=== PATIENT | male | born 1955 | race African-American/Black ===

== ENCOUNTER 2017-06-09 11:46 | Emergency (ER) | payer MEDICARE, MEDICAID ==
[2017-06-09 12:17] LABS: #Lymphocytes 1.7 thou/uL (1.20-3.40); #Monocytes 0.6 thou/uL (0.11-0.59); #Neutrophils 2.1 thou/uL (1.40-6.50); %Basophils 0.9 % (0.0-1.0); %Eosinophils 0.3 % (0.0-10.0); %Monocytes 12.8 % (0.0-10.0); Hematocrit 49.5 % (42.0-52.0); Mean Platelet Volume 7.9 fL (7.4-10.4); Red Blood Cell (RBC) Count 5.04 mill/uL (4.70-6.10); White Blood Cell (WBC) Count 4.4 thou/uL (4.8-10.8)
[2017-06-09 12:38] LABS: Bilirubin Moderate (Negative); Blood, Urine Negative (Negative); Glucose, Urine (Dipstick) Negative (Negative); Ketone, Urine Negative (Negative); Nitrite Negative (Negative); Protein, Urine (Dipstick) Negative (Neg-Trace)
[2017-06-09 12:40] LABS: ALT (SGPT) 175 U/L (8-55); AST (SGOT) 118 U/L (5-34); Alkaline Phosphatase 99 U/L (40-150); Anion Gap 19 mmol/L (10-20); BUN (Urea Nitrogen) 20 mg/dL (8.4-25.7); CK (CPK) 390 U/L (30-200); Calc. Creatinine Clearance 0 mL/min (70-130); Calcium 10.2 mg/dL (7.8-10.44); Carbon Dioxide 19 mmol/L (23-31); Chloride 106 mmol/L (98-107); Estimated GFR-MDRD 74; Protein, Total 8.2 g/dL (5.8-8.1)
[2017-06-09 12:43] LABS: Acetaminophen Less than 6.0 mcg/mL (10.0-30.0); Salicylate Less than 8.0 mg/dL (15.0-30.0)
[2017-06-09 12:48] LABS: Amphetamine Not Detected (NotDetected); Methadone Not Detected (NotDetected); Methamphetamine Not Detected (NotDetected)
[2017-06-09] MEDS ORDERED: hydrOXYzine 25 MG TAB ONE ×2 (16:28→16:29)
[2017-06-09] MEDS ORDERED: Acetaminophen 325 MG TAB ONE (18:31)
[2017-06-09] MEDS ORDERED: Ibuprofen 200 MG TAB ONE (19:45)
== END 2017-06-09 21:03 ==
LOC: ERS 11:46
DX: F23 Brief psychotic disorder (principal); I10 Essential (primary) hypertension; M19.90 Unspecified osteoarthritis, unspecified site; F41.9 Anxiety disorder, unspecified; F32.9 Major depressive disorder, single episode, unspecified; F17.210 Nicotine dependence, cigarettes, uncomplicated
CPT/HCPCS: 36415; 80053; 80306; 80307; 81003; 82550; 84443; 85025; 99285

== ENCOUNTER 2017-07-07 23:45 | Emergency (ER) | payer MEDICARE, MEDICAID ==
[2017-07-08 00:44] LABS: #Eosinphils 0.1 thou/uL (0.0-0.7); #Lymphocytes 1.8 thou/uL (1.20-3.40); #Monocytes 0.6 thou/uL (0.11-0.59); #Neutrophils 1.8 thou/uL (1.40-6.50); %Basophils 0.9 % (0.0-1.0); %Eosinophils 2.7 % (0.0-10.0); %Lymphocytes 40.8 % (21.0-51.0); %Monocytes 13.8 % (0.0-10.0); Mean Platelet Volume 7.7 fL (7.4-10.4); Red Blood Cell (RBC) Count 4.28 mill/uL (4.70-6.10); White Blood Cell (WBC) Count 4.4 thou/uL (4.8-10.8)
[2017-07-08 00:55] LABS: Bilirubin Negative (Negative); Blood, Urine Negative (Negative); Glucose, Urine (Dipstick) Negative (Negative); Ketone, Urine Negative (Negative); Nitrite Negative (Negative); Protein, Urine (Dipstick) Negative (Neg-Trace)
[2017-07-08 01:04] LABS: Acetaminophen Less than 6.0 mcg/mL (10.0-30.0); Salicylate Less than 8.0 mg/dL (15.0-30.0)
[2017-07-08 01:06] LABS: Amphetamine Not Detected (NotDetected); Methadone Not Detected (NotDetected); Methamphetamine Not Detected (NotDetected)
[2017-07-08 01:07] LABS: ALT (SGPT) 215 U/L (8-55); AST (SGOT) 233 U/L (5-34); Alkaline Phosphatase 127 U/L (40-150); Anion Gap 13 mmol/L (10-20); BUN (Urea Nitrogen) 11 mg/dL (8.4-25.7); Bilirubin, Total 0.4 mg/dL (0.2-1.2); CK (CPK) 165 U/L (30-200); Calc. Creatinine Clearance 0 mL/min (70-130); Calcium 9.2 mg/dL (7.8-10.44); Carbon Dioxide 23 mmol/L (23-31); Chloride 101 mmol/L (98-107); Estimated GFR-MDRD Greater than 90; Globulin 3.4 g/dL (2.4-3.5); Protein, Total 7.1 g/dL (5.8-8.1)
[2017-07-08 01:10] LABS: Troponin I Less than 0.010 ng/mL (< 0.028)
[2017-07-08 03:53] LABS: Troponin I 0.018 ng/mL (< 0.028)
[2017-07-08] MEDS ORDERED: Ibuprofen 200 MG TAB ONE (04:51)
--- NOTE | 2017-07-08 07:19 | RAD ---
CHEST 1 VIEW: Date: 07/07/17 HISTORY: Chest pain. COMPARISON: 11/08/15, 02/27/16. FINDINGS: Portable semiupright chest demonstrates a normal cardiac silhouette. Pulmonary vessels and hilum are normal. No masses or consolidation. No pneumothorax or osseous abnormalities. IMPRESSION: No acute cardiopulmonary process. POS: [facility]
--- NOTE | 2017-07-08 09:10 | ULT ---
PRELIMINARY REPORT/[facility]/EMERGENCY AFTER HOURS PROCEDURE: EXAM: US Abdomen Limited, Right Upper Quadrant CLINICAL HISTORY: 61 years old, male; Pain; Other: Upper abd pain TECHNIQUE: Real-time ultrasound of the right upper quadrant with image documentation. COMPARISON: No relevant prior studies available. FINDINGS: Liver: No acute findings. No mass. No intrahepatic bile duct dilation. Gallbladder: Gallbladder is somewhat contracted. Multiple gallstones. Borderline gallbladder wall th ickening. Common bile duct: Unremarkable. Pancreas: Limited visualization due to bowel gas. Unremarkable as visualized. Right kidney: Possible small right kidney stone. No hydronephrosis. IMPRESSION: Cholelithiasis. Borderline gallbladder wall thickening, although gallbladder is somewhat contracted; recommend clinical correlation/followup to exclude cholecystitis. Possible nonobstructing right kidney stone. Thank you for allowing us to participate in the care of your patient. Dictated and Authenticated by: Randell Jackson MD 07/08/2017 2:53 AM Central Time ([place] \T\ [place]) FINAL REPORT RIGHT UPPER QUADRANT ULTRASOUND: Date: 07/08/17 FINDINGS/IMPRESSION: I agree with the preliminary report given by Dr. Randell Jackson of [facility]. POS: [facility]
--- NOTE | 2017-08-23 15:00 | EKG ---
Test Reason : Blood Pressure : / mmHG Vent. Rate : 061 BPM Atrial Rate : 061 BPM P-R Int : 146 ms QRS Dur : 080 ms QT Int : 416 ms P-R-T Axes : 028 032 065 degrees QTc Int : 418 ms Normal sinus rhythm Normal ECG Confirmed by KARLA FERRIS, PREM Mendoza ([id number]), greeting card editor GIUSEPPE PATEL ([id number]) on 08/23/2017 2:59:50 PM Referred By: Confirmed By:PREM ACOSTA MD
== END 2017-07-08 05:00 | disposition home or self-care (01) ==
LOC: ERS 23:45
DX: K80.20 Calculus of gallbladder without cholecystitis without obstruction (principal); F41.9 Anxiety disorder, unspecified; F32.9 Major depressive disorder, single episode, unspecified; F17.210 Nicotine dependence, cigarettes, uncomplicated; I10 Essential (primary) hypertension
CPT/HCPCS: 36415; 71010; 76705; 80053; 80306; 80307; 81003; 82550; 82553; 84484; 85025; 93005; 99203; G0463

== ENCOUNTER 2017-08-28 11:29 | Emergency (ER) | payer MEDICARE, MEDICAID ==
[2017-08-28] MEDS ORDERED: Acetaminophen 500 MG TAB ONE (13:05)
[2017-08-28] MEDS ORDERED: Ibuprofen 800 MG TAB ONE (13:05)
[2017-08-28 13:07] LABS: #Lymphocytes 1.2 thou/uL (1.20-3.40); #Monocytes 0.4 thou/uL (0.11-0.59); #Neutrophils 1.4 thou/uL (1.40-6.50); %Basophils 0.4 % (0.0-1.0); %Eosinophils 0.7 % (0.0-10.0); %Lymphocytes 39.4 % (21.0-51.0); %Monocytes 14.4 % (0.0-10.0); %Neutrophils 45.2 % (42.0-75.0); Hemoglobin 14.5 g/dL (14.0-18.0); Mean Corpuscular HGB CONC 32.2 g/dL (32.0-36.0); Mean Corpuscular Hemoglobin 32.3 pg (27.0-31.0); Mean Platelet Volume 7.5 fL (7.4-10.4); Platelet Count 163 thou/uL (130-400); RBC Distribution Width 12.8 % (11.5-14.5); Red Blood Cell (RBC) Count 4.48 mill/uL (4.70-6.10)
--- NOTE | 2017-08-28 13:20 | RAD ---
PORTABLE CHEST: HISTORY: Cough. COMPARISON: 07/08/2017 FINDINGS: The lungs are clear. No evidence of infiltrate or vascular congestion. Heart size is normal. IMPRESSION: No acute finding. No interval change. POS: [facility]
[2017-08-28 13:25] LABS: CKMB 0.9 ng/mL (0-6.6); Troponin I 0.017 ng/mL (< 0.028)
[2017-08-28 13:27] LABS: ALT (SGPT) 110 U/L (8-55); AST (SGOT) 125 U/L (5-34); Alkaline Phosphatase 130 U/L (40-150); Anion Gap 13 mmol/L (10-20); BUN (Urea Nitrogen) 16 mg/dL (8.4-25.7); Bilirubin, Total 0.9 mg/dL (0.2-1.2); CK (CPK) 139 U/L (30-200); Calc. Creatinine Clearance 0 mL/min (70-130); Calcium 10.1 mg/dL (7.8-10.44); Carbon Dioxide 26 mmol/L (23-31); Chloride 105 mmol/L (98-107); Estimated GFR-MDRD 64; Globulin 3.7 g/dL (2.4-3.5); Glucose 103 mg/dL (80-115); Lipase 26 U/L (8-78); Potassium 4.5 mmol/L (3.5-5.1); Protein, Total 7.7 g/dL (5.8-8.1); Sodium 139 mmol/L (136-145)
--- NOTE | 2017-09-21 15:14 | EKG ---
Test Reason : WEAKNESS Blood Pressure : / mmHG Vent. Rate : 064 BPM Atrial Rate : 064 BPM P-R Int : 148 ms QRS Dur : 070 ms QT Int : 408 ms P-R-T Axes : 027 052 038 degrees QTc Int : 420 ms Normal sinus rhythm Normal ECG Confirmed by CHRISTINE FERRIS, MAUREEN ([id number]), book editor GIUSEPPE PATEL ([id number]) on 09/21/2017 3:14:07 PM Referred By: Confirmed By:MAUREEN KING MD
== END 2017-08-28 14:01 | disposition home or self-care (01) ==
LOC: ERS 11:29
DX: R53.1 Weakness (principal); R79.89 Other specified abnormal findings of blood chemistry; M66.821 Spontaneous rupture of other tendons, right upper arm; I10 Essential (primary) hypertension; F41.9 Anxiety disorder, unspecified; F17.210 Nicotine dependence, cigarettes, uncomplicated
CPT/HCPCS: 36415; 71045; 80053; 82550; 82553; 83690; 84484; 85025; 93005

== ENCOUNTER 2017-11-07 11:25 | Outpatient (CLI) | payer MEDICARE, MEDICAID | END 2017-11-07 11:26 | disposition home or self-care (01) | LOC: BICCT 11:25 | PROVIDERS: ATTEND Internal Medicine Gastroenterology | DX: K80.20 Calculus of gallbladder without cholecystitis without obstruction (principal); B18.2 Chronic viral hepatitis C; R10.33 Periumbilical pain; N20.0 Calculus of kidney; M47.896 Other spondylosis, lumbar region | CPT/HCPCS: 74177 ==

== ENCOUNTER 2018-05-15 10:12 | Emergency (ER) | payer MEDICARE, OTHER ==
[2018-05-15 10:36] LABS: Bilirubin Negative (Negative); Blood, Urine Negative (Negative); Clarity CLEAR (Clear); Glucose, Urine (Dipstick) Negative (Negative); Leukocyte Negative (Negative); Nitrite Negative (Negative); Protein, Urine (Dipstick) Negative (Neg-Trace); Specific Gravity, Urine 1.018 (1.002-1.036)
[2018-05-15] MEDS ORDERED: Acetaminophen 325 MG Suppository ONE (11:36)
[2018-05-15] MEDS ORDERED: Naproxen 500 MG TAB ONE (11:36)
[2018-05-15] MEDS ORDERED: Acetaminophen 325 MG TAB ONE (11:37)
[2018-05-15] MEDS ORDERED: Diazepam 5 MG TAB ONE (11:39)
== END 2018-05-15 12:41 | disposition home or self-care (01) ==
LOC: ERS 10:12
DX: M54.5 Low back pain (principal); F17.210 Nicotine dependence, cigarettes, uncomplicated
CPT/HCPCS: 81003; 99283

== ENCOUNTER 2018-06-26 12:33 | Emergency (ER) | payer MEDICARE, OTHER | END 2018-06-26 14:41 | disposition home or self-care (01) | LOC: ERS 12:33 | DX: M54.5 Low back pain (principal); Z76.0 Encounter for issue of repeat prescription; F17.210 Nicotine dependence, cigarettes, uncomplicated | CPT/HCPCS: 99283 ==

== ENCOUNTER 2018-10-01 15:29 | Emergency (ER) | payer MEDICARE, OTHER ==
[2018-10-01] MEDS ORDERED: Ketorolac Tromethamine 30 MG/ML VIAL ONE (17:25)
== END 2018-10-01 17:45 | disposition home or self-care (01) ==
LOC: ERS 15:29
DX: G89.29 Other chronic pain (principal); M54.5 Low back pain; M79.602 Pain in left arm; M79.601 Pain in right arm; F17.210 Nicotine dependence, cigarettes, uncomplicated
CPT/HCPCS: 96372; J1885

== ENCOUNTER 2019-03-08 14:40 | Emergency (ER) | payer MEDICARE, OTHER ==
--- NOTE | 2019-03-08 15:38 | RAD ---
AP view of the pelvis INDICATION: Left hip pain COMPARISON: None. FINDINGS: Bones: No acute fracture or subluxation is evident. Bone mineralization appears within normal limits. Hips: There is mild degenerative arthrosis of both hips SI joints and symphysis pubis: Normal appearing. Intrapelvic contents: Within normal limits. IMPRESSION: No acute osseous abnormality.
--- NOTE | 2019-03-08 15:40 | RAD ---
XR Hip Lt 2-3 View INDICATION: Left hip pain COMPARISON: None FINDINGS: Bones: No acute osseous abnormality. Bone mineralization appears within normal limits. Hip joint: Mild hip osteoarthrosis SI joints and symphysis pubis: Radiographically normal. Intrapelvic contents: Visualized bowel gas pattern is within normal limits. Surrounding soft tissues: Radiographically normal. IMPRESSION: 1. No acute osseous abnormality.
[2019-03-08] MEDS ORDERED: Ketorolac Tromethamine 30 MG/ML VIAL ONE (16:02)
== END 2019-03-08 16:29 | disposition home or self-care (01) ==
LOC: ERS 14:40
DX: M25.552 Pain in left hip (principal); G89.29 Other chronic pain; F17.210 Nicotine dependence, cigarettes, uncomplicated; W18.30XA Fall on same level, unspecified, initial encounter
CPT/HCPCS: 72170; 96372; J1885

== ENCOUNTER 2019-04-08 11:10 | Emergency (ER) | payer MEDICARE, MEDICAID ==
[2019-04-08] MEDS ORDERED: Ketorolac Tromethamine 30 MG/ML VIAL ONE (12:49)
== END 2019-04-08 13:18 | disposition home or self-care (01) ==
LOC: ERS 11:10
DX: S46.212A Strain of muscle, fascia and tendon of other parts of biceps, left arm, initial encounter (principal); S46.211A Strain of muscle, fascia and tendon of other parts of biceps, right arm, initial encounter; M79.662 Pain in left lower leg; Z89.519 Acquired absence of unspecified leg below knee; Z89.511 Acquired absence of right leg below knee; Z89.512 Acquired absence of left leg below knee; F17.210 Nicotine dependence, cigarettes, uncomplicated; X58.XXXA Exposure to other specified factors, initial encounter
CPT/HCPCS: 96372; 99281; J1885

== ENCOUNTER 2019-06-03 18:00 | Emergency (ER) | payer MEDICARE, MEDICAID ==
[2019-06-03] MEDS ORDERED: Ketorolac Tromethamine 30 MG/ML VIAL ONE (19:43)
== END 2019-06-03 20:11 | disposition home or self-care (01) ==
LOC: EEVIPCON 18:00 → ERS 18:00
DX: G89.29 Other chronic pain (principal); M25.552 Pain in left hip; M79.602 Pain in left arm; M79.601 Pain in right arm; F17.210 Nicotine dependence, cigarettes, uncomplicated
CPT/HCPCS: 96372; 99281; J1885

== ENCOUNTER 2019-07-08 12:50 | Emergency (ER) | payer MEDICARE, MEDICAID ==
[2019-07-08] MEDS ORDERED: Ketorolac Tromethamine 30 MG/ML VIAL ONE (14:46)
== END 2019-07-08 15:15 | disposition home or self-care (01) ==
LOC: ERS 12:50
DX: G89.29 Other chronic pain (principal); M25.511 Pain in right shoulder; M25.552 Pain in left hip; F17.210 Nicotine dependence, cigarettes, uncomplicated
CPT/HCPCS: J1885

== ENCOUNTER 2019-07-14 10:01 | Emergency (ER) | payer MEDICARE, OTHER | END 2019-07-14 11:03 | disposition home or self-care (01) | LOC: ERS 10:01 | DX: M25.511 Pain in right shoulder (principal); M25.552 Pain in left hip; F17.210 Nicotine dependence, cigarettes, uncomplicated | CPT/HCPCS: 99203; 99283; G0463 ==

== ENCOUNTER 2019-07-28 12:48 | Emergency (ER) | payer MEDICARE, MEDICAID ==
[2019-07-28] MEDS ORDERED: Ketorolac Tromethamine 30 MG/ML VIAL ONE (13:57)
== END 2019-07-28 14:31 | disposition home or self-care (01) ==
LOC: ERS 12:48
DX: M25.511 Pain in right shoulder (principal); F17.210 Nicotine dependence, cigarettes, uncomplicated; Z79.891 Long term (current) use of opiate analgesic
CPT/HCPCS: 96372; 99283; J1885

== ENCOUNTER 2019-08-10 13:38 | Emergency (ER) | payer MEDICARE, OTHER ==
[2019-08-10] MEDS ORDERED: Ketorolac Tromethamine 30 MG/ML VIAL ONE (16:17)
== END 2019-08-10 16:30 | disposition home or self-care (01) ==
LOC: ERS 13:38
DX: G89.29 Other chronic pain (principal); M25.552 Pain in left hip; M54.5 Low back pain; F17.210 Nicotine dependence, cigarettes, uncomplicated; Z79.899 Other long term (current) drug therapy
CPT/HCPCS: 96372; 99214; 99283; G0463; J1885

== ENCOUNTER 2019-08-27 14:14 | Outpatient (CLI) | payer MEDICARE, MEDICAID ==
--- NOTE | 2019-08-27 15:32 | MRI ---
MR the lumbar spine without contrast INDICATION: Sacroiliitis and left-sided hip pain after fall COMPARISON: MR lumbar spine dated March 18, 2015 and AP view of the pelvis dated March 08, 2019 TECHNIQUE: Multiplanar multisequence MR images were obtained of lumbar spine without IV contrast. FINDINGS: Bone marrow: There is abnormal marrow edema involving the anterior left sacral ala suspicious for a n ondisplaced insufficiency fracture. This is best seen on image 34 of series 10 and image 20 of series 8. Distal spinal cord and conus: Normal. The conus seen to terminate at T12-L1. Visualized retroperitoneum and paraspinal soft tissues: There is a 3.2 x 1.8 cm subcutaneous lipoma o verlying T11-T12 is slightly larger than on the comparison examination dated March 18, 2015 where it measured 3.0 x 1.6 cm. Vertebral levels: L5-S1: There is advanced facet osteoarthrosis, loss of disc space height and a broad-based disc bulge inducing severe bilateral neural foraminal narrowing and mild central canal narrowing. This is stable to the prior exam.. L4-5: There is a broad-based disc bulge with ligamentum flavum hypertrophy and facet joint degenerati ve change inducing moderate central canal narrowing with severe bilateral neural foraminal narrowing. This is stable to the prior exam. L3-4: There is a broad-based disc bulge with facet hypertrophy and ligamentum flavum hypertrophy tessie cing moderate central canal narrowing with severe right and moderate left neural foraminal narrowing. This has progressed from the prior exam. L2-3: There is a broad-based bulge with facet hypertrophy inducing moderate bilateral neural foramina l narrowing. This is stable to the prior exam. L1-L2: There is a broad-based bulge with facet hypertrophy inducing mild bilateral neural foraminal n arrowing which is stable from the prior exam. T12-L1: No appreciable central canal or neuroforaminal narrowing. IMPRESSION: 1. Nondisplaced anterior left sacral ala insufficiency fracture. 2. Worsening severe right and moderate left neural foraminal narrowing at L3-L4 with stable moderate central canal narrowing. 3. Severe bilateral neural foraminal narrowing at L5-S1 is stable. 4. Stable severe bilateral neural foraminal narrowing and moderate central canal narrowing at L4-5. 5. Stable moderate bilateral neural foraminal narrowing at L2-3. 6. Enlarging subcutaneous lipoma overlying the posterior midline at T11-T12.
== END 2019-08-27 14:15 | disposition home or self-care (01) ==
LOC: BICMRI 14:14
PROVIDERS: ATTEND Anesthesiology Pain Medicine
DX: M46.1 Sacroiliitis, not elsewhere classified (principal); M84.48XA Pathological fracture, other site, initial encounter for fracture; M48.061 Spinal stenosis, lumbar region without neurogenic claudication; M48.07 Spinal stenosis, lumbosacral region; D17.79 Benign lipomatous neoplasm of other sites
CPT/HCPCS: 72148

== ENCOUNTER 2019-09-10 14:36 | Emergency (ER) | payer MEDICARE, OTHER ==
--- NOTE | 2019-09-10 15:37 | RAD ---
RIGHT KNEE 4 VIEWS: HISTORY: Pain. COMPARISON: None. FINDINGS: Moderate-sized joint effusion. There appears to be a small fracture of the inferior pole of the claros lla. 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 Bipartite supralateral valdovinos la. IMPRESSION: 1. Large joint effusion with incomplete what appears to be a fracture off the inferior patellar pole near the patellar tendon origin. 2. Abnormal prepatellar soft tissue swelling suggesting a contusion and bursitis. 3. Moderate joint effusion. 4. Moderate lateral compartment osteophyte formation. POS: [facility]
[2019-09-10] MEDS ORDERED: HYDROcodone/Acetaminophen 10/325 mg Tablet ONE (15:38)
== END 2019-09-10 16:50 | disposition home or self-care (01) ==
LOC: ERS 14:36
DX: M25.561 Pain in right knee (principal); M25.461 Effusion, right knee; F17.210 Nicotine dependence, cigarettes, uncomplicated; Z71.6 Tobacco abuse counseling
CPT/HCPCS: 99406

== ENCOUNTER 2019-12-18 18:26 | Emergency (ER) | payer MEDICARE, MEDICAID ==
[2019-12-18] MEDS ORDERED: Ketorolac Tromethamine 30 MG/ML VIAL ONE (18:51)
--- NOTE | 2019-12-18 19:21 | RAD ---
Exam:Right hand 3 views HISTORY: Pain COMPARISON: 11/23/2009 FINDINGS: There are lucencies involving the capitate bone, scaphoid bone, lunate bone. There are dege nerative changes involving the first carpometacarpal joint space and first metacarpal phalangeal joint space. No fracture. Mild degenerative changes involving all 5 interphalangeal joint spaces IMPRESSION: 1. No fracture 2. Chronic degenerative changes 3. Nonspecific lucencies involving the carpal bones. Nonemergent wrist MRI.
== END 2019-12-18 20:18 | disposition home or self-care (01) ==
LOC: ERS 18:26
DX: M25.531 Pain in right wrist (principal); M25.552 Pain in left hip; G89.29 Other chronic pain; J30.9 Allergic rhinitis, unspecified; M79.89 Other specified soft tissue disorders; F17.210 Nicotine dependence, cigarettes, uncomplicated; W19.XXXA Unspecified fall, initial encounter
CPT/HCPCS: 73130; 96372; 99283; J1885

== ENCOUNTER 2020-01-13 12:21 | Emergency (ER) | payer MEDICARE, MEDICAID ==
[2020-01-13] MEDS ORDERED: Lidocaine 4% Cream 5 GM TUBE w/ Tegaderm ONE (14:38)
[2020-01-13] MEDS ORDERED: Cyclobenzaprine 10 MG TAB ONE (14:38)
[2020-01-13] MEDS ORDERED: Lidocaine 5% Patch TD SCH (15:00)
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
== END 2020-01-13 15:44 | disposition home or self-care (01) ==
LOC: ERS 12:21
DX: R07.81 Pleurodynia (principal); M54.5 Low back pain; F17.210 Nicotine dependence, cigarettes, uncomplicated; Z89.512 Acquired absence of left leg below knee; Y04.0XXA Assault by unarmed brawl or fight, initial encounter

== ENCOUNTER 2020-02-11 15:31 | Emergency (ER) | payer MEDICARE, MEDICAID ==
[2020-02-11 17:12] LABS: #Basophils 0.1 thou/uL (0.0-0.2); #Eosinphils 0.1 thou/uL (0.0-0.7); #Lymphocytes 2.1 thou/uL (1.20-3.40); #Monocytes 0.5 thou/uL (0.11-0.59); #Neutrophils 2.7 thou/uL (1.40-6.50); %Eosinophils 2.4 % (0.0-10.0); %Lymphocytes 38.8 % (21.0-51.0); %Monocytes 9.7 % (0.0-10.0); %Neutrophils 48.1 % (42.0-75.0); Hemoglobin 13.8 g/dL (14.0-18.0); Mean Corpuscular HGB CONC 32.6 g/dL (32.0-36.0); Mean Corpuscular Hemoglobin 30.8 pg (27.0-31.0); Mean Corpuscular Volume 94.4 fL (78.0-98.0); Platelet Count 212 thou/uL (130-400); RBC Distribution Width 13.8 % (11.5-14.5); Red Blood Cell (RBC) Count 4.49 mill/uL (4.70-6.10); White Blood Cell (WBC) Count 5.5 thou/uL (4.8-10.8)
--- NOTE | 2020-02-11 17:18 | RAD ---
Chest AP view INDICATION: Chest pain and history of wheezing COMPARISON: August 28, 2017 FINDINGS: Lungs: There is elevation the right hemidiaphragm with mild right basilar atelectasis. Left lung is clear. Cardiac silhouette: The cardiomediastinal silhouette appears within normal limits. Pulmonary vasculature: Normal Pleural spaces: No pleural effusion or pneumothorax is demonstrated. Upper abdomen: No abnormality seen. Osseous structures: No acute osseous abnormality. Additional findings: None. IMPRESSION: Elevation the right hemidiaphragm with right basilar atelectasis.
[2020-02-11] MEDS ORDERED: Mag-Al 1200 mg/1200 mg/30 ML UDCUP ONE (17:19)
[2020-02-11] MEDS ORDERED: Ondansetron PF 4 MG/2 ML Vial ONE (17:19)
[2020-02-11] MEDS ORDERED: Lidocaine Viscous Sol 2% 15 ml UD Cup ONE (17:19)
[2020-02-11] MEDS ORDERED: Pantoprazole 40 MG VIAL ONE (17:19)
[2020-02-11 17:35] LABS: ALT (SGPT) 18 U/L (8-55); AST (SGOT) 20 U/L (5-34); Albumin 4.1 g/dL (3.4-4.8); Alkaline Phosphatase 116 U/L (40-110); Anion Gap 10 mmol/L (10-20); BUN (Urea Nitrogen) 14 mg/dL (8.4-25.7); Bilirubin, Total 0.4 mg/dL (0.2-1.2); Calc. Creatinine Clearance 0 mL/min (70-130); Calcium 8.8 mg/dL (7.8-10.44); Carbon Dioxide 23 mmol/L (23-31); Chloride 110 mmol/L (98-107); Estimated GFR-MDRD 87; Globulin 2.9 g/dL (2.4-3.5); Glucose 72 mg/dL (80-115); Lipase 41 U/L (8-78); Potassium 3.5 mmol/L (3.5-5.1); Sodium 139 mmol/L (136-145)
== END 2020-02-11 18:51 | disposition home or self-care (01) ==
LOC: ERS 15:31
DX: R10.13 Epigastric pain (principal); F17.210 Nicotine dependence, cigarettes, uncomplicated
CPT/HCPCS: 36415; 71045; 80053; 83690; 84484; 85025; 93005; 96374; 96375; C9113; J2405

== ENCOUNTER 2020-03-29 11:11 | Outpatient (CLI) | payer MEDICARE, MEDICAID ==
[~2020-03-29 11:11] MED LIST: Iopamidol 370 76% 100 ML VIAL ONE
--- NOTE | 2020-03-29 12:15 | CT ---
CT ABDOMEN AND PELVIS WITH AND WITHOUT IV CONTRAST: Oral contrast was not given. INDICATION: Left upper quadrant pain. COMPARISON: Comparison is made to CT abdomen and pelvis 11/07/2017. FINDINGS: Review of the noncontrast images again shows tiny gallstones which appear unchanged from the prior ex am. There is a nonobstructing calculus in the upper collecting structures of the right kidney measur ing approximately 4 mm. Tiny calculus in the lower pole collecting structures of the left kidney duane sures 3-4 mm. No evidence of ureteral calculus or obstruction. No hydronephrosis. Postcontrast images reveal unremarkable liver, spleen, and pancreas. Adrenal glands appear normal. Kidneys show symmetric enhancement and function. Aorta shows mild atherosclerotic calcification without aneurysm. Both bowel loops appear normal. Appendix appears normal. Colon is unremarkable. No mass or adenopathy. Images through the pelvis show mild prostatic hypertrophy. Urinary bladder n ot well distended. Osseous structures unremarkable with degenerative spine changes. IMPRESSION: 1. Cholelithiasis again noted. 2. There are nonobstructing calculi in the upper collecting structures of both kidneys as described. 3. Otherwise, no acute process. POS: [facility]
== END 2020-03-29 11:12 | disposition home or self-care (01) ==
LOC: BICCT 11:11
PROVIDERS: ATTEND Nurse Practitioner Family
DX: R10.12 Left upper quadrant pain (principal); K80.20 Calculus of gallbladder without cholecystitis without obstruction; N20.0 Calculus of kidney
CPT/HCPCS: 74178; 82565; Q9967

== ENCOUNTER 2020-06-14 10:03 | Emergency (ER) | payer MEDICARE, MEDICAID ==
[2020-06-14] MEDS ORDERED: Fluorescein Opthalmic Strip ONE (10:24)
[2020-06-14] MEDS ORDERED: Proparacaine 0.5% Opth 15 ML BOT ONE (10:25)
== END 2020-06-14 11:20 | disposition home or self-care (01) ==
LOC: ERS 10:03
DX: T15.02XA Foreign body in cornea, left eye, initial encounter (principal); F17.210 Nicotine dependence, cigarettes, uncomplicated
CPT/HCPCS: 99283

== ENCOUNTER 2020-07-03 14:37 | Emergency (ER) | payer MEDICARE, MEDICAID ==
[2020-07-03] MEDS ORDERED: Fluorescein Opthalmic Strip ONE (15:07)
[2020-07-03] MEDS ORDERED: Proparacaine 0.5% Opth 15 ML BOT ONE (15:09)
[2020-07-03] MEDS ORDERED: Mag-Al 1200 mg/1200 mg/30 ML UDCUP ONE (15:29)
[2020-07-03] MEDS ORDERED: Lidocaine Viscous Sol 2% 15 ml UD Cup ONE (15:29)
[2020-07-03 15:30] LABS: Hemoglobin 13.1 g/dL (14.0-18.0); Mean Corpuscular HGB CONC 32.3 g/dL (32.0-36.0); Mean Corpuscular Hemoglobin 30.7 pg (27.0-31.0); Mean Corpuscular Volume 95.1 fL (78.0-98.0); Mean Platelet Volume 7.2 fL (7.4-10.4); Platelet Count 212 thou/uL (130-400); RBC Distribution Width 13.5 % (11.5-14.5); Red Blood Cell (RBC) Count 4.27 mill/uL (4.70-6.10)
[2020-07-03 15:49] LABS: ALT (SGPT) 15 U/L (8-55); AST (SGOT) 17 U/L (5-34); Alkaline Phosphatase 94 U/L (40-110); Anion Gap 16 mmol/L (10-20); BUN (Urea Nitrogen) 17 mg/dL (8.4-25.7); Band 1 % (5-11); Bilirubin, Total 0.2 mg/dL (0.2-1.2); Calc. Creatinine Clearance 0 mL/min (70-130); Calcium 9.1 mg/dL (7.8-10.44); Carbon Dioxide 22 mmol/L (23-31); Chloride 108 mmol/L (98-107); Eosinophils 5 % (0-10); Estimated GFR-MDRD 80; Globulin 2.8 g/dL (2.4-3.5); Glucose 115 mg/dL (80-115); Lymphocytes 48 % (21-51); MDiff Complete? YES; Monocytes 10 % (0-10); Neutrophil 29 % (42-75); Platelet Morphology Comment Appears Adequate; Polychromasia SLIGHT = 2-3 cells (100X) (0-2/hpf); Potassium 3.7 mmol/L (3.5-5.1); Protein, Total 6.8 g/dL (5.8-8.1); Reactive Lymphocytes 7 % (0-10); Sodium 142 mmol/L (136-145)
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
== END 2020-07-03 16:20 | disposition home or self-care (01) ==
LOC: ERS 14:37
DX: H57.89 Other specified disorders of eye and adnexa (principal); G89.29 Other chronic pain; M54.5 Low back pain; K21.9 Gastro-esophageal reflux disease without esophagitis; R06.00 Dyspnea, unspecified; F17.210 Nicotine dependence, cigarettes, uncomplicated
CPT/HCPCS: 36415; 71045; 80053; 84484; 85025; 93005

== ENCOUNTER 2020-07-17 22:24 | Emergency (ER) | payer MEDICARE, MEDICAID ==
--- NOTE | 2020-07-17 22:51 | RAD ---
2 view chest: [07/17/2020] Comparison:07/03/2020 HISTORY: Cough, chest pain FINDINGS: There is stable elevation of the right hemidiaphragm and mild increased linear interstitial density bilaterally. There is no pneumothorax, pleural fluid, lobar consolidation, or alveolar edema. There are stable degenerative changes involving the shoulders. IMPRESSION: Stable increased linear interstitial density and elevation of the right hemidiaphragm. No focal consolidation or alveolar edema.
[2020-07-17] MEDS ORDERED: Ibuprofen 800 MG TAB ONE (23:48)
== END 2020-07-18 00:06 | disposition home or self-care (01) ==
LOC: ERS 22:24
DX: R07.89 Other chest pain (principal); F17.210 Nicotine dependence, cigarettes, uncomplicated
CPT/HCPCS: 71046

== ENCOUNTER 2020-07-24 13:16 | Emergency (ER) | payer MEDICARE, MEDICAID ==
--- NOTE | 2020-07-24 13:45 | RAD ---
EXAM: Single view of the chest HISTORY: Right-sided chest and rib pain COMPARISON: 07/17/2020 FINDINGS: Single view of the chest shows a normal sized cardiomediastinal silhouette. There is stabl e elevation the right hemidiaphragm. Linear atelectasis is seen in the right lung base. There is no evidence of consolidation, mass, or pleural effusion. Degenerative changes are seen in the spine. IMPRESSION: No evidence of acute cardiopulmonary disease
[2020-07-24] MEDS ORDERED: Ketorolac Tromethamine 30 MG/ML VIAL ONE (14:12)
[2020-07-24 14:13] LABS: #Basophils 0.1 thou/uL (0.0-0.2); #Eosinphils 0.1 thou/uL (0.0-0.7); #Lymphocytes 1.9 thou/uL (1.20-3.40); #Monocytes 0.5 thou/uL (0.11-0.59); #Neutrophils 1.7 thou/uL (1.40-6.50); %Basophils 1.5 % (0.0-1.0); %Lymphocytes 44.5 % (21.0-51.0); %Monocytes 11.6 % (0.0-10.0); %Neutrophils 39.5 % (42.0-75.0); Hemoglobin 14.2 g/dL (14.0-18.0); Mean Corpuscular Hemoglobin 29.3 pg (27.0-31.0); Mean Corpuscular Volume 91.5 fL (78.0-98.0); Mean Platelet Volume 7.5 fL (7.4-10.4); Platelet Count 222 thou/uL (130-400); RBC Distribution Width 13.2 % (11.5-14.5); Red Blood Cell (RBC) Count 4.86 mill/uL (4.70-6.10); White Blood Cell (WBC) Count 4.2 thou/uL (4.8-10.8)
[2020-07-24 14:28] LABS: ALT (SGPT) 19 U/L (8-55); AST (SGOT) 19 U/L (5-34); Albumin 4.2 g/dL (3.4-4.8); Alkaline Phosphatase 93 U/L (40-110); Anion Gap 14 mmol/L (10-20); BUN (Urea Nitrogen) 15 mg/dL (8.4-25.7); Bilirubin, Total 0.3 mg/dL (0.2-1.2); CK (CPK) 342 U/L (30-200); Calc. Creatinine Clearance 0 mL/min (70-130); Calcium 9.4 mg/dL (7.8-10.44); Carbon Dioxide 24 mmol/L (23-31); Chloride 104 mmol/L (98-107); Estimated GFR-MDRD 81; Globulin 3.2 g/dL (2.4-3.5); Glucose 100 mg/dL (80-115); Potassium 3.8 mmol/L (3.5-5.1); Protein, Total 7.4 g/dL (5.8-8.1); Sodium 138 mmol/L (136-145)
[2020-07-24 15:14] LABS: Bilirubin Negative (Negative); Blood, Urine Negative (Negative); Clarity Clear (Clear); Glucose, Urine (Dipstick) Normal (Negative); Ketone, Urine Negative (Negative); Leukocyte Negative Leu/uL (Negative); Nitrite Negative (Negative); Protein, Urine (Dipstick) Negative (Neg-Trace); Specific Gravity, Urine 1.003 (1.002-1.036); Urobilinogen Normal mg/dL (Less than 2); pH, Urine 6.5 (5.0-9.0)
== END 2020-07-24 16:14 | disposition home or self-care (01) ==
LOC: ERS 13:16
DX: R07.89 Other chest pain (principal); F17.210 Nicotine dependence, cigarettes, uncomplicated
CPT/HCPCS: 71045; 80053; 81003; 82550; 84484; 85025; 93005; 96374; J1885

== ENCOUNTER 2020-08-11 14:27 | Outpatient (CLI) | payer MEDICARE, OTHER ==
--- NOTE | 2020-08-11 16:32 | CT ---
CT ABDOMEN AND PELVIS WITH IV CONTRAST: 08/11/20 Oral contrast was administered. INDICATIONS: Abdominal pain. COMPARISON: CT abdomen and pelvis 03/29/20. Lung bases are clear. The liver, spleen and pancreas unremarkable and unchanged. Hepatogastric lymph node along the anterio r margin of the pancreas is stable from prior exam and measures approximately 2 cm. At least two small calcified gallstones are again seen in the gallbladder fundus. No evidence of jose r cholecystic edema. The liver, spleen and pancreas otherwise unremarkable. Adrenal glands unremarkable. Kidneys unremarkable. The small nonobstructing calculus in the lower collecting structures of the left kidney measuring in the 3 mm range is again seen and is stable from prior exam. There is a small 3 mm calculus in the mid pole collecting structures of the right kidney which is also stable. Small bowel loops normal. Appendix normal. Colon unremarkable with stool and gas throughout the colon . Colonic mucosal lesions are not excluded on CT. Aorta normal caliber. No other evidence of adenopathy. Images through the pelvis show mildly prominent prostate. The urinary bladder is unremarkable. The osseous structures are unremarkable with degenerative spine change. There is evidence of disc pro trusion and severe central canal stenosis at L4-5 and L5-S1 levels. IMPRESSION: 1. Stable CT findings when compared to 03/29/20. Nonspecific lymph node in the upper abdomen just anterior to the pancreas is unchanged. 2. Cholelithiasis again noted. 3. Nonobstructing calculi in both kidneys appear stable. 4. Prominent degenerative disc changes in the spine with evidence of severe central canal stenos is at L4-5 and L5-S1. POS: [facility]
== END 2020-08-11 14:28 | disposition home or self-care (01) ==
LOC: BICCT 14:27
PROVIDERS: ATTEND Physician Assistant Medical
DX: R10.11 Right upper quadrant pain (principal); R14.0 Abdominal distension (gaseous); B18.2 Chronic viral hepatitis C; K21.9 Gastro-esophageal reflux disease without esophagitis; K80.20 Calculus of gallbladder without cholecystitis without obstruction; N20.0 Calculus of kidney; M51.36 Other intervertebral disc degeneration, lumbar region; M48.061 Spinal stenosis, lumbar region without neurogenic claudication; M48.07 Spinal stenosis, lumbosacral region
CPT/HCPCS: 74177; Q9967

== ENCOUNTER 2021-01-06 14:55 | Emergency (ER) | payer MEDICARE, OTHER ==
[2021-01-06 15:49] LABS: #Basophils 0.1 thou/uL (0.0-0.2); #Eosinphils 0.1 thou/uL (0.0-0.7); #Lymphocytes 2.3 thou/uL (1.20-3.40); #Monocytes 0.4 thou/uL (0.11-0.59); #Neutrophils 2.5 thou/uL (1.40-6.50); %Eosinophils 2.3 % (0.0-10.0); %Lymphocytes 43.3 % (21.0-51.0); %Monocytes 7.8 % (0.0-10.0); %Neutrophils 45.6 % (42.0-75.0); Hemoglobin 13.1 g/dL (14.0-18.0); Mean Corpuscular HGB CONC 31.9 g/dL (32.0-36.0); Mean Corpuscular Hemoglobin 29.5 pg (27.0-31.0); Mean Corpuscular Volume 92.5 fL (78.0-98.0); Mean Platelet Volume 7.6 fL (7.4-10.4); Platelet Count 234 thou/uL (130-400); RBC Distribution Width 14.1 % (11.5-14.5); Red Blood Cell (RBC) Count 4.45 mill/uL (4.70-6.10); White Blood Cell (WBC) Count 5.4 thou/uL (4.8-10.8)
[2021-01-06 16:09] LABS: ALT (SGPT) 12 U/L (8-55); AST (SGOT) 18 U/L (5-34); Albumin 3.9 g/dL (3.4-4.8); Alkaline Phosphatase 97 U/L (40-110); Anion Gap 14 mmol/L (10-20); BUN (Urea Nitrogen) 15 mg/dL (8.4-25.7); Bilirubin, Total Less than 0.2 mg/dL (0.2-1.2); CK (CPK) 270 U/L (30-200); Calc. Creatinine Clearance 0 mL/min (70-130); Calcium 9.4 mg/dL (7.8-10.44); Carbon Dioxide 22 mmol/L (23-31); Chloride 108 mmol/L (98-107); Glucose 95 mg/dL (80-115); Potassium 3.7 mmol/L (3.5-5.1); Protein, Total 6.9 g/dL (5.8-8.1); Sodium 140 mmol/L (136-145)
[2021-01-06] MEDS ORDERED: Ketorolac Tromethamine 30 MG/ML VIAL ONE (16:22)
[2021-01-06 16:37] LABS: Bilirubin Negative (Negative); Blood, Urine Negative (Negative); Clarity Clear (Clear); Glucose, Urine (Dipstick) Normal (Negative); Ketone, Urine Negative (Negative); Leukocyte Negative Leu/uL (Negative); Nitrite Negative (Negative); Protein, Urine (Dipstick) Negative (Neg-Trace); Specific Gravity, Urine 1.019 (1.002-1.036); Urobilinogen Normal mg/dL (Less than 2); pH, Urine 5.5 (5.0-9.0)
[2021-01-06 17:01] LABS: Amphetamine Not Detected (NotDetected); Barbiturates Screen Not Detected (NotDetected); Benzodiazepine Screen Not Detected (NotDetected); Cocaine Metabolite Screen Not Detected (NotDetected); Medtox Control Line Valid? VALID (VALID); Medtox Reader # READER 4; Methadone Not Detected (NotDetected); Methamphetamine Not Detected (NotDetected); Opiate Screen Not Detected (NotDetected); Oxycodone Screen Not Detected (NotDetected); Phencyclidine (PCP) Not Detected (NotDetected); THC/Cannabinoid Screen Not Detected (NotDetected); Tricyclic Screen Not Detected (NotDetected)
== END 2021-01-06 16:58 | disposition home or self-care (01) ==
LOC: ERS 14:55
DX: M79.18 Myalgia, other site (principal); F17.210 Nicotine dependence, cigarettes, uncomplicated
CPT/HCPCS: 36415; 80053; 80306; 81003; 82550; 85025; 96372; 99281; J1885

== ENCOUNTER 2021-01-23 09:47 | Emergency (ER) | payer MEDICARE, OTHER ==
[2021-01-23] MEDS ORDERED: Ibuprofen 200 MG TAB ONE (11:20)
== END 2021-01-23 12:10 | disposition home or self-care (01) ==
LOC: ERS 09:47
DX: S92.331A Displaced fracture of third metatarsal bone, right foot, initial encounter for closed fracture (principal); S92.341A Displaced fracture of fourth metatarsal bone, right foot, initial encounter for closed fracture; S92.351A Displaced fracture of fifth metatarsal bone, right foot, initial encounter for closed fracture; F17.210 Nicotine dependence, cigarettes, uncomplicated; W18.09XA Striking against other object with subsequent fall, initial encounter

== ENCOUNTER 2021-06-13 18:29 | Emergency (ER) | payer MEDICARE, OTHER ==
[2021-06-13] MEDS ORDERED: Ketorolac Tromethamine 30 MG/ML VIAL ONE ×2 (18:57→19:20)
== END 2021-06-13 19:45 | disposition home or self-care (01) ==
LOC: ERS 18:29
DX: S20.211A Contusion of right front wall of thorax, initial encounter (principal); F17.210 Nicotine dependence, cigarettes, uncomplicated
CPT/HCPCS: 96372; J1885

== ENCOUNTER 2021-09-06 09:26 | Outpatient (CLI) | payer MEDICARE, OTHER ==
[2021-09-06] MEDS ORDERED: Iopamidol 370 76% 100 ML VIAL ONE (11:00)
== END 2021-09-06 09:27 | disposition home or self-care (01) ==
LOC: CT 09:26
PROVIDERS: ATTEND Physician Assistant Medical
DX: K21.9 Gastro-esophageal reflux disease without esophagitis (principal); R14.0 Abdominal distension (gaseous); R63.5 Abnormal weight gain; K80.20 Calculus of gallbladder without cholecystitis without obstruction; N20.0 Calculus of kidney; M47.816 Spondylosis without myelopathy or radiculopathy, lumbar region; R59.0 Localized enlarged lymph nodes
CPT/HCPCS: 74177; 82565; Q9967

== ENCOUNTER 2022-01-09 16:43 | Emergency (ER) | payer MEDICARE, OTHER ==
[2022-01-09] MEDS ORDERED: Dexameth. Sod Phosp. 10 MG/ML (CHEMO USE ONLY) ONE (17:54)
== END 2022-01-09 19:05 | disposition home or self-care (01) ==
LOC: ERS 16:43
DX: J02.9 Acute pharyngitis, unspecified (principal); F17.210 Nicotine dependence, cigarettes, uncomplicated
CPT/HCPCS: 87081; 87430; 87804; 96372; 99283; J1100

== ENCOUNTER 2022-01-25 16:40 | Emergency (ER) | payer MEDICARE ==
[2022-01-25 17:13] LABS: #Eosinphils 0.2 thou/uL (0.0-0.7); #Lymphocytes 2.5 thou/uL (1.20-3.40); #Monocytes 0.6 thou/uL (0.11-0.59); #Neutrophils 2.7 thou/uL (1.40-6.50); %Basophils 0.2 % (0.0-1.0); %Eosinophils 3.6 % (0.0-10.0); %Lymphocytes 41.3 % (21.0-51.0); %Monocytes 9.4 % (0.0-10.0); %Neutrophils 45.4 % (42.0-75.0); Hemoglobin 13.2 g/dL (14.0-18.0); Mean Corpuscular HGB CONC 31.8 g/dL (32.0-36.0); Mean Corpuscular Hemoglobin 30.3 pg (27.0-31.0); Mean Corpuscular Volume 95.3 fL (78.0-98.0); Mean Platelet Volume 7.2 fL (7.4-10.4); Platelet Count 229 thou/uL (130-400); RBC Distribution Width 14.1 % (11.5-14.5); Red Blood Cell (RBC) Count 4.36 mill/uL (4.70-6.10)
[2022-01-25 17:33] LABS: ALT (SGPT) 29 U/L (8-55); AST (SGOT) 30 U/L (5-34); Albumin 4.2 g/dL (3.4-4.8); Alkaline Phosphatase 106 U/L (40-110); Anion Gap 13 mmol/L (10-20); BUN (Urea Nitrogen) 14 mg/dL (8.4-25.7); Bilirubin, Total 0.2 mg/dL (0.2-1.2); Calc. Creatinine Clearance 0 mL/min (70-130); Calcium 9.7 mg/dL (7.8-10.44); Carbon Dioxide 28 mmol/L (23-31); Chloride 107 mmol/L (98-107); Glucose 116 mg/dL (80-115); Potassium 3.9 mmol/L (3.5-5.1); Protein, Total 7.2 g/dL (5.8-8.1); Sodium 144 mmol/L (136-145)
[2022-01-25] MEDS ORDERED: Acetaminophen 500 MG TAB ONE (20:39)
[2022-01-25] MEDS ORDERED: predniSONE 20 MG TAB ONE (20:58)
== END 2022-01-25 22:19 | disposition home or self-care (01) ==
LOC: ERS 16:40
DX: R06.2 Wheezing (principal); R07.89 Other chest pain; F17.210 Nicotine dependence, cigarettes, uncomplicated
CPT/HCPCS: 36415; 71045; 80053; 83880; 84484; 85025; 93005; J7512

== ENCOUNTER 2022-06-17 14:39 | Emergency (ER) | payer OTHER ==
[2022-06-17] MEDS ORDERED: Ketorolac Tromethamine 30 MG/ML VIAL ONE (15:01)
== END 2022-06-17 17:54 | disposition home or self-care (01) ==
LOC: ERS 14:39
DX: S30.0XXA Contusion of lower back and pelvis, initial encounter (principal); W11.XXXA Fall on and from ladder, initial encounter; F17.210 Nicotine dependence, cigarettes, uncomplicated
CPT/HCPCS: 72192; 96372; J1885

== ENCOUNTER 2023-03-07 11:28 | Outpatient (CLI) | payer OTHER | END 2023-03-07 11:29 | disposition home or self-care (01) | LOC: RAD 11:28 | PROVIDERS: ATTEND Neurological Surgery | DX: M47.26 Other spondylosis with radiculopathy, lumbar region (principal); M47.22 Other spondylosis with radiculopathy, cervical region; M25.78 Osteophyte, vertebrae | CPT/HCPCS: 72050; 72110 ==

== ENCOUNTER 2023-07-05 14:29 | Emergency (ER) | payer OTHER, MEDICAID ==
[2023-07-05] MEDS ORDERED: Ketorolac Tromethamine 30 MG/ML VIAL ONE (16:25)
== END 2023-07-05 16:41 | disposition home or self-care (01) ==
LOC: ERS 14:29
DX: S33.5XXA Sprain of ligaments of lumbar spine, initial encounter (principal); F17.210 Nicotine dependence, cigarettes, uncomplicated; X50.1XXA Overexertion from prolonged static or awkward postures, initial encounter
CPT/HCPCS: 96372; 99283; J1885

== ENCOUNTER 2023-07-10 12:46 | Emergency (ER) | payer OTHER, MEDICAID ==
[2023-07-10] MEDS ORDERED: Ketorolac Tromethamine 30 MG/ML VIAL ONE (14:59)
[2023-07-10] MEDS ORDERED: Cyclobenzaprine 10 MG TAB ONE (14:59)
== END 2023-07-10 15:45 | disposition home or self-care (01) ==
LOC: ERS 12:46
DX: M54.50 Low back pain, unspecified (principal); F17.210 Nicotine dependence, cigarettes, uncomplicated
CPT/HCPCS: 96372; 99283; J1885

== ENCOUNTER 2024-01-15 11:17 | Outpatient (CLI) | payer OTHER | END 2024-01-15 11:18 | disposition home or self-care (01) | LOC: BICRAD 11:17 | PROVIDERS: ATTEND Student in an Organized Health Care Education/Training Program | DX: M25.512 Pain in left shoulder (principal); M25.511 Pain in right shoulder; M19.011 Primary osteoarthritis, right shoulder ==

== ENCOUNTER 2025-04-12 16:40 | Emergency (ER) | payer OTHER, MEDICAID ==
[2025-04-12] MEDS ORDERED: Fluorescein Opthalmic Strip ONE (19:44)
[2025-04-12] MEDS ORDERED: Ketorolac Tromethamine 30 MG (1 mL) VIAL ONE (20:31)
[2025-04-12] MEDS ORDERED: Acetaminophen 500 MG TAB ONE (20:31)
== END 2025-04-12 20:36 | disposition home or self-care (01) ==
LOC: ERS 16:40
DX: H10.9 Unspecified conjunctivitis (principal); F17.210 Nicotine dependence, cigarettes, uncomplicated; Z55.6 Problems related to health literacy
CPT/HCPCS: 96372; 99283; J1885